=== PATIENT | female | born 1970 | race African-American/Black ===

== ENCOUNTER 2021-05-04 10:58 | Day surgery (SDC) | payer OTHER ==
[~2021-05-04] VITALS: Ht 162.6 cm; Wt 90.7 kg
[~2021-05-04 10:58] MED LIST: CHLORTHALIDONE25 MG PO; CLARITIN10 MG PO; LINZESS145 MCG PO; MULTI VITAMIN1 EACH PO; PROTONIX40 M2 PO; TOPIRAMATE50 MG PO
[2021-05-04 12:15] VITALS: BP 129/85
[2021-05-04 12:52] LABS: CALCIUM 8.7 mg/dL (8.5-10.1); CREATININE 0.8 mg/dL (0.6-1.0)
[2021-05-04 12:54] LABS: POTASSIUM 2.9 mmol/L (3.5-5.1)
[2021-05-04 17:46] VITALS: BP 101/71
--- NOTE | 2021-05-04 19:02 | NUR ---
Pt transferred to unit from PACU approx [phone]. Pt a&ox4. Pain under control. Incisions clean and well-approximated. Tolerating clear liquids. SUPERVISOR IN CHARGE stated potassium administered in other department. Report given to bettie KWAN.
--- NOTE | 2021-05-05 03:28 | NUR ---
ASSUMED CARE OF PT AT 1900. BEDSIDE REPORT RECIEVED, ROSE MARY ASSESSMENT COMPLETE. 4 ABDOMINAL LAP SITES C DERMABOND. IVF HUNG PER JUL. PAIN MEDS GIVEN ACCORDINLY. IVF POTASSIUM GIVEN IN ED PER REPORT. REFILLED ICE WATER. ALL NEEDS MET, CALL LIGHT IN REACH, HOURLY ROUNDING CONTINUING
[2021-05-05 08:39] VITALS: BP 114/74
--- NOTE | 2021-05-05 10:07 | NUR ---
Assumed care of pt at 0700. Pt a&ox4. Incisions clean and well-approximated. Up ad kannan. Pain controlled with prn pain medications. Clear liquid diet. Call light within reach. Will continue to monitor.
--- NOTE | 2021-05-05 11:55 | EKG ---
[address] [place] [address] ELECTROCARDIOGRAM REPORT Name: DENNY FRAZIER Room #: 443-P [facility]#: [id number] Admission: 05/04/21 Attend Phys: Ochoa Quesada MD Discharge: Date of : 68 Report #: [id number] [facility] Test Date: 2021-05-04 Test Time: 12:43:29 Pat Name: DENNY FRAZIER Department: Room: 150 7 Gender: F Train Controller: DOMINIQUE : 1970 Requested By: Ochoa Quesada Order Number: [id number] MD: Alex Cardoza Measurements Intervals [place] Rate: 75 P: 68 MT: 196 QRS: -29 QRSD: 148 T: 134 QT: 424 QTc: 474 Interpretive Statements Sinus rhythm Left bundle branch block No previous ECG available for comparison Electronically Signed On 05-05-2021 11:55:31 [employer] by Alex Cardoza [email or web address] <ELECTRONICALLY SIGNED> By: Alex Cardoza MD, [facility] 05/05/21 1155 1243 1243 Alex Cardoza MD, FACC /EPI
[2021-05-05 16:55] VITALS: BP 125/74
[2021-05-05 18:45] VITALS: BP 125/74
[2021-05-05] MEDS ORDERED: HYDROCODONE-ACE15 ML PO (18:46)
--- NOTE | 2021-05-06 19:15 | O ---
[facility] [place] [address] OPERATIVE REPORT Name: DENNY FRAZIER Room #: DEP [facility].#: [id number] Admission: 05/04/21 Attend Phys: Ochoa Quesada MD Discharge: 05/05/21 Date of : 68 Report #: [id number] THIS REPORT FOR: cc: Suraj Howell MD, Jason MD Joseph,Ochoa Stark MD ~ DATE OF SERVICE: 05/04/2021 PREOPERATIVE DIAGNOSES: 1. Symptomatic hiatal hernia. 2. History of gastric sleeve. POSTOPERATIVE DIAGNOSES: 1. Symptomatic hiatal hernia. 2. History of gastric sleeve. OPERATIVE PROCEDURE DONE: 1. Laparoscopic lysis of adhesions. 2. Laparoscopic repair of hiatal hernia. OPERATING SURGEON: Ochoa Quesada MD INDICATIONS FOR THE PROCEDURE: The patient is a 51-year-old female who has a history of gastric sleeve done nearly 9 years ago and subsequently had a hiatal hernia repair done. The patient continued to have persistent reflux and upper GI contrast study that was done, showed a small to moderate size hiatal hernia. The patient wished to have this repaired, although she was advised to have LINX procedure or possible bypass. The patient wished to have a distal repair of the hiatal hernia at this point. PROCEDURE IN DETAIL: After explaining to the patient in detail, an informed consent was obtained. The patient was identified in the preoperative holding area. The patient was transferred to the operating room and was placed in supine position. Sequential compression devices were placed for DVT prophylaxis. Separate preoperative antibiotics were given. After induction of anesthesia, the abdomen was prepped and draped in a sterile fashion through a left upper quadrant 1 cm incision using Optiview technique. Pneumoperitoneum was created so thereafter under direct vision, another 5 mm trocar was placed in the left mid abdomen, another 12 mm trocar was placed in the right mid abdomen, another 5 mm trocar was placed in the right subcostal region and through a 1 cm incision in the epigastrium, a Corby retractor was introduced and the left lobe of the liver was retracted. Upon initial inspection, the patient was noted to have moderate amount of adhesions in the upper part of the abdomen near the proximal stomach. The stomach was found to be adherent on the undersurface of the left lobe of the liver, which was all gently taken down, continued to take down the adhesions on the left and the right side of the sleeve, gastrectomy and [address] [address] OPERATIVE REPORT Name: DENNY FRAZIER [id number] Admission: 05/04/21 Attend Phys: Ochoa Quesada MD Discharge: 05/05/21 Date of : 68 Report #: [id number] proximal stomach. This part of the dissection was a little tedious. I continued to dissect initially from the right jose and then anterior dissection. I took down some of the adhesions in the left lateral aspect. The left jose was then identified, continued dissection along the left jose and then posteriorly continued to mobilize the distal esophagus. Once adequate length of the esophagus was achieved, I then performed a posterior cruroplasty with a [id number] Ethibond suture. Two interrupted sutures were placed on the left and right side to pexy the proximal stomach, GE junction on to the left and the right crura. Absolute hemostasis was ensured. Approximately about 10 mL of lidocaine, Marcaine mix was instilled into the left hemidiaphragm and near the hiatus. Abdomen was then deflated. A 12 mm port site incision was closed with 0 Vicryl for the fascia. Skin was closed with 4-0 Monocryl. Dermabond was applied. The patient was stable at the end of the procedure. The patient was awoken up from anesthesia and was transferred to the recovery room in stable condition. Estimated blood loss was 25 mL. CONDITION: The patient is stable. FLUIDS GIVEN: Per anesthesia notes. SPECIMEN SENT: None. COMPLICATIONS: None. ANESTHESIA: General anesthesia. <ELECTRONICALLY SIGNED> By: Ochoa Quesada MD 05/06/21 1915 1533 13 Ochoa Quesada MD /nt
== END 2021-05-05 18:56 | disposition home or self-care (01) ==
LOC: OR 10:58 → TBA 11:08 → OR 15:15 → 4S 17:23 → OR 05-05 18:56
PROVIDERS: ATTEND Surgery
DX: K44.9 Diaphragmatic hernia without obstruction or gangrene (principal); I10 Essential (primary) hypertension; K21.9 Gastro-esophageal reflux disease without esophagitis; Z98.890 Other specified postprocedural states; Z79.899 Other long term (current) drug therapy; Z98.51 Tubal ligation status; Z20.822 Contact with and (suspected) exposure to COVID-19; Z98.84 Bariatric surgery status
CPT/HCPCS: 50010; 50101; 50386; 50555; 51489; 52265; 52266; 53307; 54022; 54118; 55326; 56462; 56525; 56526; 56531; 57092; 58574; 58587; 58910; 62110; 62900; 65130; 70005